=== PATIENT | female | born 1950 | race Caucasian/White ===

== ENCOUNTER 2020-05-21 00:46 | Outpatient (CLI) | payer MEDICARE, BC, SELFPAY ==
[2020-05-21 18:12] LABS: SARS-CoV-2 RNA PCR Negative
== END 2020-05-21 00:47 | disposition home or self-care (01) ==
LOC: ANHCOVIDDT 00:46
PROVIDERS: PCP Emergency Medicine; Visit Provider Internal Medicine Gastroenterology
DX: Z01.812 Encounter for preprocedural laboratory examination (principal); Z20.828 Contact with and (suspected) exposure to other viral communicable diseases
CPT/HCPCS: 87635; C9803; U0003

== ENCOUNTER 2020-05-23 02:50 | Day surgery (SDC) | payer MEDICARE, BC, SELFPAY ==
[2020-05-16 14:01] VITALS: BMI 27.3
[2020-05-16 14:31] VITALS: BMI 27.3
--- NOTE | 2020-05-23 08:23 | WPDANESEPPF ---
Anes - Initial Pre Proc Eval Procedure: Operation Date: 05/23/20 11:30 Proposed Procedures p Screening Colonoscopy - Glenroy Nolen DO Date/Time: 05/23/20 08:23 Surgeon: Glenroy Nolen DO Pre Op Diagnosis: hx of colon polyps Patient Data Age: 70 Gender: F Height: 1.57 m Weight: 68 kg Allergies Allergy/AdvReac Type Severity Reaction Status Date / Time cephalexin Allergy Unknown Hives Verified 05/23/20 10:28 Home Medications Medication Instructions Recorded Confirmed Type aspirin 81 mg tablet,delayed 81 mg PO DAILY 08/11/19 05/23/20 History release nitroglycerin 0.4 mg sublingual 0.4 mg SUBLINGUAL Q5M PRN 08/11/19 05/16/20 History tablet metoprolol tartrate 25 mg tablet See Rx Instructions .ROUTE 03/27/20 05/23/20 Rx .COMPLEX #90 tablet atorvastatin 40 mg tablet 40 mg PO DAILY #90 tablet 04/03/20 05/23/20 Rx cholecalciferol (vitamin D3) 50 50 mcg PO WEEKLY cap 04/03/20 05/23/20 History mcg (2,000 unit) capsule Patient hx anesthesia problems: none Family hx anesthesia problems: none PMFSH Past Medical History Medical History (Updated 05/22/20 @ 11:58 by Rufino Cedillo DO) ASHD (arteriosclerotic heart disease) CAD (coronary artery disease) Hypertension Surgical History Surgical History (Updated 05/23/20 @ 11:21 by Rufino Cedillo DO) History of cholecystectomy History of coronary artery stent placement stent x1, 08/2018 Social History Social History Smoking status: Former smoker Alcohol intake: current Alcohol use details: SOCIAL, WEEKENDS Living arrangements: with family Additional living arrangements comments: with son Gender identity (if verbalized by the patient): Female Spiritual care concerns: No Anes - Eval Final PreProcedure Day of Procedure 05/23/20 08:23 Patient weight: overweight Heart: regular rate and rhythm Lungs: clear to auscultation and normal air movement Airway: Mallampati scale class II Neurological: alert and oriented Last oral intake: >/= 8 hours ASA classification: III Emergent: no Anesthetic plan: proceed Anesthesia type and monitoring: general GIVS and standard monitoring Informed Consent: The patient's anesthetic plan and its attendant risks and benefits were discussed with the patient/family/POA. Questions were solicited and answers provided to the satisfaction of the patient/family/POA.
[2020-05-23 10:29] VITALS: BP 137/84; PULSE 75; RESP 16; TEMP 36.4; O2SAT 100; BMI 26.5
[2020-05-23] MEDS: LACTATED RINGERS 1,000 ML 150 ML IV CONT (10:44)
--- NOTE | 2020-05-23 12:20 | PM.IMHP ---
H&P: HPI History of Present Illness Date/Time: 05/23/20 12:20 Chief complaint: hx of colon polyps Narrative: Reason for visit colonoscopy. This very pleasant lady seen in consultation request of the primary physician. Impression: Area very pleasant lady that is here for screening and surveillance colonoscopy. She has a history of adenomatous colon polyps. HTN. HLD. Coronary disease. Vitamin-D deficiency. Recommendation: Colonoscopy. History: This very pleasant lady's here for screening and surveillance colonoscopy. She has history adenomatous colon polyps. Physical examination: General: very pleasant patient in no acute distress. HEENT: Head was normocephalic sclerae is clear mouth without masses neck was supple. Heart: Rate rhythm regular without S3 or S4. Lungs: CTA. Abdomen: Soft with no guarding or rigidity. Bowel sounds were active. Neurologic: Cranial nerves 2 through 12 intact. No focal defects. No clonus. Musculoskeletal system: Revealed no joint tenderness or swelling no muscle atrophy. Extremities: Reveal no significant edema. Skin: Warm and dry with normal turgor. Mental status: intact. Patient is alert and oriented. Review of Systems Review of Systems: All systems reviewed & are unremarkable except as noted in HPI and below PMFSH Past Medical History Medical History (Updated 05/22/20 @ 11:58 by Rufino Cedillo DO) ASHD (arteriosclerotic heart disease) CAD (coronary artery disease) Hypertension Surgical History Surgical History (Updated 05/23/20 @ 11:21 by Rufino Cedillo DO) History of cholecystectomy History of coronary artery stent placement stent x1, 08/2018 Social History Social History Smoking status: Former smoker Alcohol intake: current Alcohol use details: SOCIAL, WEEKENDS Living arrangements: with family Additional living arrangements comments: with son Gender identity (if verbalized by the patient): Female Spiritual care concerns: No Meds Home Medications and Allergies Home Medications Medication Instructions Recorded Confirmed Type aspirin 81 mg tablet,delayed 81 mg PO DAILY 08/11/19 05/23/20 History release nitroglycerin 0.4 mg sublingual 0.4 mg SUBLINGUAL Q5M PRN 08/11/19 05/16/20 History tablet metoprolol tartrate 25 mg tablet See Rx Instructions .ROUTE 03/27/20 05/23/20 Rx .COMPLEX #90 tablet atorvastatin 40 mg tablet 40 mg PO DAILY #90 tablet 04/03/20 05/23/20 Rx cholecalciferol (vitamin D3) 50 50 mcg PO WEEKLY cap 04/03/20 05/23/20 History mcg (2,000 unit) capsule Allergies Allergy/AdvReac Type Severity Reaction Status Date / Time cephalexin Allergy Unknown Hives Verified 05/23/20 10:28 Vital Signs Vital Signs - 24 hr 05/23/20 10:29 Temperature 36.4 C Pulse Rate 75 Respiratory Rate 16 Blood Pressure 137/84 Pulse Oximetry 100
[2020-05-23 12:44] VITALS: BP 127/72; PULSE 67; RESP 17; O2SAT 100
[2020-05-23 12:54] VITALS: BP 132/76; PULSE 64; RESP 17; O2SAT 97
[2020-05-23 13:04] VITALS: BP 147/76; PULSE 60; RESP 17; O2SAT 100
== END 2020-05-23 13:20 | disposition home or self-care (01) ==
PROVIDERS: PCP Emergency Medicine; Referring Provider Obstetrics & Gynecology Gynecology; Visit Provider Internal Medicine Gastroenterology
PROC: 0DJD8ZZ Inspection of Lower Intestinal Tract, Via Natural or Artificial Opening Endoscopic (ICD-10-PCS; CPT 45378; principal; 2020-05-23 11:30)
DX: Z12.11 Encounter for screening for malignant neoplasm of colon (principal); K63.5 Polyp of colon; K57.30 Diverticulosis of large intestine without perforation or abscess without bleeding; K64.8 Other hemorrhoids; I10 Essential (primary) hypertension; I25.10 Atherosclerotic heart disease of native coronary artery without angina pectoris; Z79.82 Long term (current) use of aspirin; Z95.5 Presence of coronary angioplasty implant and graft; Z87.891 Personal history of nicotine dependence
CPT/HCPCS: 45380; 88305; J2704; J7120

== ENCOUNTER → 2020-08-24 12:19 | Outpatient (CLI) | payer MEDICARE, SELFPAY ==
--- NOTE | ~2020-08-24 | MM_ITS ---
EXAMINATION: MM screening [facility] BI w marylou HISTORY: Screening mammogram TECHNIQUE: Craniocaudal and mediolateral oblique 3-D tomosynthesis images were obtained and synthetic 2-D images were generated. CAD analysis was submitted and interpreted. COMPARISON: 07/20/2019, 04/05/1718, 03/17/2017 BREAST PARENCHYMAL COMPOSITION: There are scattered areas of fibroglandular density. FINDINGS: RIGHT BREAST: There is no evidence of suspicious mass, calcification, or architectural distortion to suggest malignancy. There has been no significant interval change. LEFT BREAST: An asymmetry is present in the middle third of the inner left breast 7 cm from the nippl e on the craniocaudal view. IMPRESSION: 1. Left breast asymmetry on the craniocaudal view. 2. Additional mammographic views and possible breast ultrasound are recommended. BI-RADS Category 0: Incomplete: Needs additional imaging evaluation. Reviewed, dictated and finalized at location A. LITY ENVIRONMENTAL TECHNICIAN IMPRESSION: 1. Left breast asymmetry on the craniocaudal view. 2. Additional mammographic views and possible breast ultrasound are recommended . BI-RADS Category 0: Incomplete: Needs additional imaging evaluation.
== END ==
PROVIDERS: Visit Provider Obstetrics & Gynecology Gynecology
DX: Z12.31 Encounter for screening mammogram for malignant neoplasm of breast (principal); R92.8 Other abnormal and inconclusive findings on diagnostic imaging of breast
CPT/HCPCS: 77063; 77067

== ENCOUNTER → 2020-09-17 09:03 | Outpatient (CLI) | payer MEDICARE, SELFPAY ==
--- NOTE | ~2020-09-17 | MMUS_ITS ---
EXAMINATION: MM diagnostic mammo unilat LT, US breast LT limited HISTORY: Left breast asymmetry on screening mammogram TECHNIQUE: Additional 3-D tomosynthesis images of the left breast were performed and synthetic 2-D im ages were generated. CAD analysis was submitted and interpreted. High resolution limited left breast ultrasound was performed. COMPARISON: 08/24/2020, 07/20/2019, 04/12/2018 FINDINGS: MAMMOGRAPHIC FINDINGS: There appears to be a 3 mm mass with surrounding architectural distortion in the middle third of the lower breast at the 7:00 location 6 cm from the nipple. ULTRASOUND: There is a 2.5 mm oval, circumscribed, hypoechoic mass without definite posterior features or interna l vascularity at the 7:00 location 3 cm from the nipple. IMPRESSION: 1. Suspicious left breast mass. 2. Ultrasound-guided biopsy is recommended. BI-RADS category 4, suspicious findings. Reviewed, dictated and finalized at location A. ACT ASSEMBLER IMPRESSION: 1. Suspicious left breast mass. 2. Ultrasound-guided biopsy is recommended. BI-RADS category 4, suspicious findings.
== END ==
PROVIDERS: Visit Provider Obstetrics & Gynecology Gynecology
DX: N63.24 Unspecified lump in the left breast, lower inner quadrant (principal)
CPT/HCPCS: 76642; 77065

== ENCOUNTER → 2022-04-07 09:48 | Outpatient (CLI) | payer MEDICARE, SELFPAY ==
--- NOTE | ~2022-04-07 | MM_ITS ---
EXAMINATION: MM screening [facility] BI w marylou HISTORY: Screening TECHNIQUE: Craniocaudal and mediolateral oblique 3-D tomosynthesis images were obtained and synthetic 2-D images were generated. CAD analysis was submitted and interpreted. COMPARISON: Comparison to multiple prior studies sequentially, with oldest reviewed study dated 12/30. BREAST PARENCHYMAL COMPOSITION: There are scattered areas of fibroglandular density. FINDINGS: There is no evidence of suspicious mass, calcification, or architectural distortion to sugg est malignancy in either breast. There has been no suspicious interval change. IMPRESSION: 1. No mammographic evidence of malignancy. 2. Recommend routine screening mammography in one year. BI-RADS Category 1: Negative Reviewed, dictated and finalized at location A.
== END ==
PROVIDERS: PCP Emergency Medicine; Visit Provider Obstetrics & Gynecology Gynecology
DX: Z12.31 Encounter for screening mammogram for malignant neoplasm of breast (principal)
CPT/HCPCS: 77063; 77067

== ENCOUNTER 2022-05-19 10:20 | Outpatient (CLI) | payer MEDICARE, BC, SELFPAY ==
--- NOTE | ~2022-05-19 | US_ITS ---
EXAMINATION: US carotid duplex BI DATE: 05/19/2022 11:17 INDICATION: Left carotid bruit TECHNIQUE: Grayscale, color Doppler, and pulsed Doppler images of the cervical carotid arteries were obtained. The degree of vessel stenosis is placed in one of the following categories: normal, <50%, 5 0-69%, >=70% but less than near-occlusion, near-occlusion, or total occlusion. Note that percent sten osis relative to normal distal artery lumen diameter is indirectly measured from velocity measurement s as described by Edwar, et al. Radiology 2003; 229:340-346. Notes: Normal: Peak systolic velocity <125 centimeters/sec and no plaque <50%. Peak systolic velocity <125 ( EDV <40; ICA/CCA PSV ratio <2.0; used these factors only a tandem lesions or low cardiac output or co ntralateral disease) 50-69 %: PSV 125-230 (EDV 40-100; ratio 2-4) >= 70% but less than near occlusion: PSV greater than 230 (EDV > 100; ratio> 4.0) Near Occlusion: PSV that is variable; markedly narrowed lumen Occlusion: Absent flow on color/spectral Doppler and no lumen on arenas scale. COMPARISON: None. FINDINGS: RIGHT: The right common carotid artery (CCA) peak systolic velocity (PSV) is 106 cm/s. The right internal ca rotid artery (ICA) PSV is 74 cm/s. The right ICA end-diastolic velocity (EDV) is 17 cm/s. The right I CA/CCA PSV ratio is 1.5. The external carotid artery (ECA) PSV is 140 cm/s. There is antegrade flow i n the right vertebral artery. LEFT: The left CCA PSV is 81 cm/s. The left ICA PSV is 87 cm/s. The left ICA EDV is 24 cm/s. The left ICA/C CA PSV ratio is 1.3. The ECA PSV is 93 cm/s. There is antegrade flow in the left vertebral artery. IMPRESSION: 1. Less than 50% stenosis in the right internal carotid artery by sonographic criteria. 2. Less than 50% stenosis in the left internal carotid artery by sonographic criteria. Reviewed, dictated and finalized at location A. IMPRESSION: 1. Less than 50% stenosis in the right internal carotid artery by sonographic c khang. 2. Less than 50% stenosis in the left internal carotid artery by sonographic maritza diaz.
== END 2022-05-19 10:21 | disposition home or self-care (01) ==
LOC: ANHIMG 10:24
PROVIDERS: PCP Emergency Medicine; Visit Provider Specialist
DX: R09.89 Other specified symptoms and signs involving the circulatory and respiratory systems (principal); I65.23 Occlusion and stenosis of bilateral carotid arteries
CPT/HCPCS: 93880

== ENCOUNTER 2023-09-20 04:17 | Inpatient (IN) | payer MEDICARE, BC, SELFPAY ==
[2023-09-20] VITALS (19 sets, daily range): BP systolic 120–179; BP diastolic 59–82; PULSE 64–95; RESP 12–21; TEMP 36.6–37.1; O2SAT 98–100; BMI 26.7
--- NOTE | ~2023-09-20 | CT_ITS ---
EXAMINATION: CT brain wo con INDICATION: Head injury COMPARISON: None TECHNIQUE: Standard unenhanced head CT. The dose-length product (DLP) was 605.33 mGy-cm. The mA was a djusted according to patient size. Iterative reconstruction technique was employed. FINDINGS: No acute intraparenchymal hemorrhage. No evidence of mass lesion. No evidence of acute infa rction. There is mild periventricular and subcortical hypodensity probably related to small vessel is chemic disease. There is mild prominence of the sulci and ventricles related to cerebral atrophy. Int racranial calcified cerebral atherosclerosis is noted. No extra-axial collections. No mass effect or midline shift. The orbits and soft tissues are unremarkable. The visualized sinuses and mastoid air c ells are well aerated. IMPRESSION: 1. No acute intracranial abnormality. 2. Age related findings. Reviewed, dictated and finalized at location F. ST
--- NOTE | 2023-09-20 04:19 | ECG_ITS ---
Measurements Intervals [place] Rate: 68 P: 48 OH: 173 QRS: 55 QRSD: 91 T: 68 QT: 408 QTc: 436 Interpretive Statements SINUS RHYTHM Electronically Signed On 09-20-2023 11:39:45 PARQUETRY FLOOR LAYER by Eddie Rasmussen M.D.
[2023-09-20 04:56] LABS: Basophils Percent Auto 0.7 % (0.2-1.2); Eosinophils Absolute Auto 0.1 K/mm3 (0-0.3); Hematocrit 34.9 % (37.0-47.0); Immature Granulocyte Absolute 0.02 K/mm3 (0.00-0.031); Immature Granulocyte Percent A 0.3 % (0-0.5); Lymphocytes Absolute Auto 0.61 K/mm3 (0.9-3.2); Lymphocytes Percent Auto 10.4 % (18.3-44.2); Mean Corpuscular HGB Conc 34.4 g/dl (32-36); Mean Corpuscular Hemoglobin 31.7 pg (26-34); Mean Corpuscular Volume 92.1 fl (80-100); Monocytes Absolute Auto 0.4 K/mm3 (0.1-0.6); Monocytes Percent Auto 6.8 % (2.6-8.5); Neutrophils Absolute Auto 4.7 K/mm3 (1.3-6.7); Neutrophils Percent Auto 80.8 % (45.5-73.1); Platelet Count Result 265 k/mm3 (150-375); Red Blood Count 3.79 M/mm3 (4.2-5.4); White Blood Count 5.9 K/mm3 (4.5-10.0)
[2023-09-20 07:07] LABS: Alanine Aminotransferase 24 U/L (6-35); Alkaline Phosphatase 85 U/L (38-126); Anion Gap 5 mmol/L (8-16); Aspartate Amino Transferase 35 U/L (14-36); Bilirubin,Total 1.5 mg/dL (0.2-1.3); Blood Urea Nitrogen 14 mg/dL (7-17); Calcium 9.4 mg/dL (8.4-10.2); Carbon Dioxide 31 mmol/L (22-30); Chloride 89 mmol/L (98-107); Estimated Glomerular Filt Rate > 60; Glucose 112 mg/dL (65-110); Potassium 3.3 mmol/L (3.4-5.0); Sodium 125 mmol/L (137-145)
--- NOTE | 2023-09-20 07:44 | ED.DIZZY ---
HPI - Dizziness General Chief Complaint: Syncope Stated Complaint: syncopal episode/hit head Time Seen by Provider: 09/20/23 06:52 History of Present Illness HPI Narrative: 73-year-old presenting to the emergency department for evaluation after having a syncopal episode. Patient reports she had woken up in the night to use the restroom, patient was able to successfully use the restroom and while walking back to her bedroom she felt she was going to pass out. patient was not able to keep herself from falling. patient did have a syncopal episode during which she struck her forehead. Patient denies any other pain or injury. Patient does have prior history of VA and does have a stent in place, patient follows up with Dr. Johnson. Patient did have a similar syncopal episode the holidays, at that time patient attributed her symptoms to gastroenteritis. Related Data Home Medications Medication Instructions Recorded Confirmed aspirin 81 mg tablet,delayed 81 mg PO DAILY 08/11/19 09/20/23 release chlorthalidone 25 mg tablet 25 mg PO DAILY 11/17/22 09/20/23 metoprolol succinate 50 mg 50 mg PO DAILY 11/17/22 09/20/23 tablet,extended release 24 hr ergocalciferol (vitamin D2) 1,250 50,000 unit PO USEASDIRECTD 07/15/23 09/20/23 mcg (50,000 unit) capsule atorvastatin 40 mg tablet 40 mg PO DAILY 09/20/23 09/20/23 Allergies Allergy/AdvReac Type Severity Reaction Status Date / Time cephalexin Allergy Unknown Hives Verified 09/20/23 08:37 Acyclovir Analogues AdvReac Mild Nausea and Verified 09/20/23 08:37 hives Review of Systems Review of Systems: All systems reviewed & are unremarkable except as noted in HPI and below [facility] Past Medical History Medical History (Updated 09/20/23 @ 13:30 by Abbe Pedroza MD) ASHD (arteriosclerotic heart disease) CAD (coronary artery disease) Closed fracture of right wrist Colon cancer screening Encounter for screening for cardiovascular disorders Essential hypertension Hypertension Mixed hyperlipidemia Other screening mammogram Subdural hemorrhage 2020 after fall with head trauma Surgical History Surgical History History of cholecystectomy History of coronary artery stent placement stent x1, 08/2018 Family History Family History Mother Family history of coronary artery disease Family history of lung cancer, Onset Age: 83 Social History Social History Smoking status: Former smoker Alcohol intake: current Drinks per week: 2 Alcohol use details: SOCIAL, WEEKENDS Substance use type: does not use Do You Feel Safe in your Home?: Yes Lack of Transportation: No Lack of Food: Never True Current Housing: Decline to Answer Concerned About Future Housing: Decline to Answer Difficulty Paying Gas/Electric Bills: Decline to Answer Difficulty Paying for Meds: Decline to Answer Currently Unemployed: Decline to Answer Education: Decline to Answer Difficulty w/ Childcare or Family Care: Decline to Answer Living arrangements: with family Additional living arrangements comments: with son Gender identity (if verbalized by the patient): Female Spiritual care concerns: No Exam Narrative: APPEARANCE: Well appearing, no pain, no distress, well-nourished. HEAD: normocephalic, abrasions to face. EYES: PERRLA/EOMI, conjunctivae clear. NOSE: Normal no drainage EARS:TMS clear with good light reflex. THROAT: Pharynx clear, no exudate. NECK: Supple. No adenopathy, no masses. RESPIRATORY: Airway patent, respirations nonlabored. Clear to auscultation bilaterally, no rales, rhonchi, wheezing. CARDIOVASCULAR: Regular rate and rhythm without murmurs rubs or gallops. ABDOMINAL: Soft, nontender, nondistended, normal bowel sounds MUSCULOSKELETAL: Moves all extremities. Strength/ROM intact, No edema,
[2023-09-20 07:45] LABS: Influenza A QL RT-PCR Negative (Negative); Influenza B QL RT-PCR Negative (Negative); RSV RNA, RT-PCR Negative (Negative); SARS-CoV-2 RNA PCR Negative (Negative)
[2023-09-20] MEDS: SODIUM CHLORIDE 0.9% IV 1,000 ML 999 ML IV CONT (10:05)
[2023-09-20] MEDS: POTASSIUM CHLORIDE 20 MEQ PACKET (FOR LIQUID) 40 MEQ PO (10:05)
[2023-09-20 10:13] LABS: Magnesium 1.9 mg/dL (1.6-2.3)
--- NOTE | 2023-09-20 11:20 | PC.NURSE ---
This patient, Reina Garcia, was admitted to [facility] Surg Room 330-02. Patient/family oriented to hospital policies and general routines including ID bracelet, bed and alarms, visiting hours, pain management, procedures, bathroom and other care routines, personal items, smoking policy, room service/diet, and visiting hours. Information on how to activate the Rapid Response Team has been discussed. Patient/Family are encouraged to report perceived risks to care and to ask questions if they do not understand what they are told or what they should do.
--- NOTE | 2023-09-20 11:40 | PM.IMHP ---
H&P: HPI History of Present Illness Date/Time: 09/20/23 11:40 Chief Complaint: Syncope Narrative: 73-year-old female was feeling good until around 3:00 a.m. this morning. She had not eaten much the night before and was not sleeping well. She was sleeping on the couch and awaken to urinate bathroom and urinated she was walking back began to feel lightheaded. She tried to make it back to the couch but lost consciousness and fell and hit her head. But she awakened fairly quickly. Her son, who lives with her, found her. She did not have any chest pain or palpitations. No headaches. No focal weakness or numbness. No difficulty ambulating afterwards. She denied any similar episodes. However around August 10 for 1 days she felt lightheaded and tired. She has a history of difficult to control and labile blood pressure. Home blood pressure readings generally run in the 140s to 150s sometimes higher when she is stressed or active. She denied chest pain or dyspnea or edema. Denied abdominal pain. Denied rectal bleeding. Denied difficulty urinating or dysuria. Denied hematuria. Denied migraines. Denied weakness or numbness. Denied fevers or chills, cough or congestion or recent illness. Review of Systems Review of Systems: All systems reviewed & are unremarkable except as noted in HPI and below PMFSH Past Medical History Medical History (Updated 09/20/23 @ 13:30 by Abbe Pedroza MD) ASHD (arteriosclerotic heart disease) CAD (coronary artery disease) Closed fracture of right wrist Colon cancer screening Encounter for screening for cardiovascular disorders Essential hypertension Hypertension Mixed hyperlipidemia Other screening mammogram Subdural hemorrhage 2020 after fall with head trauma Surgical History Surgical History History of cholecystectomy History of coronary artery stent placement stent x1, 08/2018 Family History Family History Mother Family history of coronary artery disease Family history of lung cancer, Onset Age: 83 Social History Social History Smoking status: Former smoker Alcohol intake: current Drinks per week: 2 Alcohol use details: SOCIAL, WEEKENDS Substance use type: does not use Do You Feel Safe in your Home?: Yes Lack of Transportation: No Lack of Food: Never True Current Housing: Decline to Answer Concerned About Future Housing: Decline to Answer Difficulty Paying Gas/Electric Bills: Decline to Answer Difficulty Paying for Meds: Decline to Answer Currently Unemployed: Decline to Answer Education: Decline to Answer Difficulty w/ Childcare or Family Care: Decline to Answer Living arrangements: with family Additional living arrangements comments: with son Gender identity (if verbalized by the patient): Female Spiritual care concerns: No Meds Home Medications and Allergies Home Medications Medication Instructions Recorded Confirmed Type aspirin 81 mg tablet,delayed 81 mg PO DAILY 08/11/19 09/20/23 History release nitroglycerin 0.4 mg sublingual 0.4 mg sublingual Q5M PRN Chest 11/30/20 09/20/23 Rx tablet Pain #25 tabs chlorthalidone 25 mg tablet 25 mg PO DAILY 11/17/22 09/20/23 History metoprolol succinate 50 mg 50 mg PO DAILY 11/17/22 09/20/23 History tablet,extended release 24 hr ergocalciferol (vitamin D2) 1,250 50,000 unit PO USEASDIRECTD 07/15/23 09/20/23 History mcg (50,000 unit) capsule atorvastatin 40 mg tablet 40 mg PO DAILY 09/20/23 09/20/23 History Allergies Allergy/AdvReac Type Severity Reaction Status Date / Time cephalexin Allergy Unknown Hives Verified 09/20/23 08:37 Acyclovir Analogues AdvReac Mild Nausea and Verified 09/20/23 08:37 hives Vital Signs Vital Signs - 24 hr 09/20/23 04:41 09/20/23 05:39 09/20/23 05:45 Temp
[2023-09-20] MEDS: METOPROLOL SUCCINATE EXT REL 50 MG TABCR PO (14:19)
[2023-09-20] MEDS: POTASSIUM CHLORIDE 20 MEQ ER TABLET 40 MEQ PO (14:19)
[2023-09-21] VITALS (11 sets, daily range): BP systolic 136–147; BP diastolic 59–71; PULSE 61–80; RESP 14–18; TEMP 36.3–36.9; O2SAT 99–100
[2023-09-21 07:02] LABS: Anion Gap 4 mmol/L (8-16); Blood Urea Nitrogen 12 mg/dL (7-17); Carbon Dioxide 29 mmol/L (22-30); Chloride 95 mmol/L (98-107); Estimated CRCL calculation 62 ml/min; Estimated Glomerular Filt Rate > 60; Glucose 92 mg/dL (65-110); Magnesium 1.8 mg/dL (1.6-2.3); Sodium 128 mmol/L (137-145)
[2023-09-21] MEDS: METOPROLOL SUCCINATE EXT REL 50 MG TABCR PO (08:43)
[2023-09-21] MEDS: ASPIRIN 81 MG ENTERIC TABLET PO (08:44)
[2023-09-21] MEDS: ATORVASTATIN 40 MG TABLET PO (08:44)
--- NOTE | 2023-09-21 13:45 | PM.IMPN ---
Progress Note: A&P Assessment and Plan (1) Syncope: Code(s): R55 - Syncope and collapse Status: Acute Assessment and Plan: Clinically related to volume to with orthostatic hypotension and electrolyte abnormalities secondary to chlorthalidone (2) Orthostatic hypotension: Code(s): I95.1 - Orthostatic hypotension Status: Acute Assessment and Plan: Likely due to poor p.o. intake and use of thiazide diuretic as well as metoprolol (3) Acute hyponatremia: Code(s): E87.1 - Hypo-osmolality and hyponatremia Status: Acute Assessment and Plan: Likely due to thiazide diuretic Replete with IVF and hold thiazide F/u lab (4) Acute hypokalemia: Code(s): E87.6 - Hypokalemia Status: Acute Assessment and Plan: Acute on chronic Likely due to thiazide diuretic Replete with PO KCL F/u lab (5) Coronary artery disease involving [place] coronary artery without angina pectoris: Code(s): I25.10 - Atherosclerotic heart disease of [place] coronary artery without angina pectoris Status: Acute Assessment and Plan: Clinically stable Continue metoprolol (6) Hypertension: Code(s): I10 - Essential (primary) hypertension Status: Acute Assessment and Plan: Control not adequate by current readings, however did not get antihypertensives on the morning of September 20 Give metoprolol ER in afternoon of September 20 Reassessed blood pressures September 21 including orthostatics If hypertension not controlled low-dose amlodipine (7) HLD (hyperlipidemia): Qualifiers: Hyperlipidemia type: mixed hyperlipidemia Qualified Code(s): E78.2 - Mixed hyperlipidemia Code(s): E78.5 - Hyperlipidemia, unspecified Status: Acute Assessment and Plan: Continue atorvastatin Subjective Date/time seen: 09/21/23 13:45 Interval history: 73-year-old female was feeling good until around 3:00 a.m. this morning.? She had not eaten much the night before and was not sleeping well.? She was sleeping on the couch and awaken to urinate bathroom and urinated she was walking back began to feel lightheaded.? She tried to make it back to the couch but lost consciousness and fell and hit her head. Pt found to have low potassium and sodium levels potassium corrected on labs but sodium is still low pt diuretics have been stopped pt looks dry Review of Systems Review of Systems: feels better no specic complaints All systems reviewed & are unremarkable except as noted in HPI and below Exam Narrative: HEENT: EOMI, PERRL, sclerae nonicteric, pharyngeal mucosa pink and intact NECK: No JVD, adenopathy, or thyromegaly CHEST: Clear to auscultation and percussion. Normal effort. HEART: NL S1/S2, regular, no murmur. ABDOMEN: BS+, soft, nontender, no mass, no bruits EXTREMITIES: No cyanosis, edema, or clubbing NEUROLOGIC: CN intact and symmetric to inspection. Strength and tone symmetric in upper and lower extremities. MUSCULOSKELETAL: No gross deformity to visual inspection. PSYCH: Alert. Oriented to person, place, and time. Objective Data Vital Signs Vital Signs: Vital Signs - 24 hr 09/20/23 14:19 09/20/23 14:00 09/20/23 16:03 Temperature 36.6 C Pulse Rate 92 79 65 Respiratory Rate 12 Blood Pressure 142/64 H Pulse Oximetry 100 Oxygen Delivery 09/20/23 21:37 09/20/23 20:45 09/20/23 22:41 Temperature 36.8 C Pulse Rate 69 68 Respiratory Rate Blood Pressure 144/60 H Pulse Oximetry 99 99 Oxygen Delivery Room Air 09/20/23 20:00 09/21/23 00:00 09/21/23 04:00 Temperature Pulse Rate 74 65 61 Respiratory Rate Blood Pressure Pulse Oximetry Oxygen Delivery 09/21/23 06:15 09/21/23 08:43 09/21/23 08:45 Temperature 36.4 C L Pulse Rate 69 80 Respiratory Rate 16 Blood Pressure 145/59 H Pulse Oximetry 100 Oxygen Delivery Room Air Intake/Output Intake/Out
[2023-09-21] MEDS: SODIUM CHLORIDE 0.9% IV 1,000 ML 70 ML IV CONT (14:32)
[2023-09-22] VITALS (11 sets, daily range): BP systolic 153–188; BP diastolic 68–88; PULSE 60–81; RESP 16–18; TEMP 36.3–36.6; O2SAT 100
--- NOTE | 2023-09-22 | ECHO_ITS ---
Patient Info Name: Reina Garcia Age: 73 years : 1950 Gender: Female Ht: 62 in Wt: 150 lbs BSA: 1.74 m2 HR: 74 bpm BP: 153 / 75 mmHg Heart Rhythm: Sinus Rhythm Technical Quality: Good Exam Date: 09/22/2023 2:00 PM Exam Location: Echo Lab Patient Status: Inpatient Admit Date: 09/21/2023 Staff Ordering Physician: Trinidad Pratt MD Geodetic Computator: Dieter Snowden RDCS Attending Provider: Abbe Pedroza MD Exam Type: CA echo doppler color flow Study Info Indications - syncope Complete two-dimensional, color flow and Doppler transthoracic echocardiogram is performed. Summary 1. Complete two-dimensional, color flow and Doppler transthoracic echocardiogram is performed. 2. Left ventricular chamber dimension is normal. 3. Left ventricular systolic function is normal, estimated at >70%. 4. The left ventricular diastolic function is grade I diastolic dysfunction. 5. Right ventricular systolic function is normal. 6. No significant valvular disease. Left Ventricle Left ventricular chamber dimension is normal. Left ventricular systolic function is normal, estimated at >70%. There is no increased left ventricular wall thickness. The left ventricular diastolic function is grade I diastolic dysfunction. Right Ventricle Right ventricular chamber dimension is normal. Right ventricular systolic function is normal. Left Atria Left atrial chamber dimension is normal. Right Atria Right atrial chamber dimension is normal. Atrial Septum Intact interatrial septum visualized by color flow imaging. Aortic Valve The aortic valve is trileaflet. There is no aortic valve stenosis. There is no aortic valve regurgitation. There is mild aortic valve calcification. Pulmonic Valve The pulmonic valve is not well visualized. Mitral Valve There is trace mitral valve regurgitation. The mitral valve annulus is moderately calcified. Tricuspid Valve There is trace tricuspid valve regurgitation. Pericardium/Pleural There is trivial pericardial effusion. Inferior Vena Cava Normal inferior vena cava with >50% collapse upon inspiration consistent with Empty right atrial pressure, 3 mmHg. Aorta The aortic root size at the sinus of Valsalva is normal. Left Ventricular Outflow Tract Name Value Normal LVOT 2D LVOT Diameter 1.9 cm LVOT Doppler LVOT Peak Gradient 5 mmHg LVOT Mean Gradient 3 mmHg LVOT VTI 26 cm LVOT VTI/AV VTI Ratio 0.7 LVOT Stroke Volume 72 ml LVOT CO 4.9 l/min LVOT CI 2.8 l/min/m2 Pulmonic Valve Name Value Normal RVOT Doppler RVOT Peak Gradient 2 mmHg PV Doppler PV Peak Gradient 3 mmHg Mitral Valve --------
[2023-09-22] MEDS: SODIUM CHLORIDE 0.9% IV 1,000 ML 70 ML IV CONT ×2 (04:50→21:12)
[2023-09-22 06:44] LABS: Anion Gap 5 mmol/L (8-16); Blood Urea Nitrogen 12 mg/dL (7-17); Carbon Dioxide 26 mmol/L (22-30); Chloride 95 mmol/L (98-107); Estimated CRCL calculation 64 ml/min; Estimated Glomerular Filt Rate > 60; Glucose 89 mg/dL (65-110); Potassium 3.5 mmol/L (3.4-5.0); Sodium 126 mmol/L (137-145)
[2023-09-22] MEDS: ASPIRIN 81 MG ENTERIC TABLET PO (08:49)
[2023-09-22] MEDS: METOPROLOL SUCCINATE EXT REL 50 MG TABCR PO (08:49)
[2023-09-22] MEDS: ATORVASTATIN 40 MG TABLET PO (08:49)
[2023-09-22 11:36] LABS: Sodium Urine Random 81 meq/L
--- NOTE | 2023-09-22 15:08 | P.PNIM_ITS ---
Progress Note: A&P Assessment and Plan (1) Syncope: Code(s): R55 - Syncope and collapse Status: Acute Assessment and Plan: * Clinically related to volume to with orthostatic hypotension and electrolyte abnormalities secondary to chlorthalidone * orthostatic negative today (2) Orthostatic hypotension: Code(s): I95.1 - Orthostatic hypotension Status: Acute Assessment and Plan: * Likely due to poor p.o. intake and use of thiazide diuretic as well as metoprolol * ortho vital signs normal today * dietitian consulted for intale eval l (3) Acute hyponatremia: Code(s): E87.1 - Hypo-osmolality and hyponatremia Status: Acute Assessment and Plan: * Likely due to thiazide diuretic * Replete with IVF and hold thiazide * awaiting urine studies (4) Acute hypokalemia: Code(s): E87.6 - Hypokalemia Status: Acute Assessment and Plan: * Acute on chronic * Likely due to thiazide diuretic * Replete with PO KCL * F/u lab (5) Coronary artery disease involving [place] coronary artery without angina pectoris: Code(s): I25.10 - Atherosclerotic heart disease of [place] coronary artery without angina pectoris Status: Acute Assessment and Plan: * Clinically stable * Continue metoprolol (6) Hypertension: Code(s): I10 - Essential (primary) hypertension Status: Acute Assessment and Plan: * Control not adequate by current readings, however did not get antihypertensives on the morning of September 20 * Give metoprolol ER in afternoon of September 20 * Reassessed blood pressures September 21 including orthostatics * If hypertension not controlled low-dose amlodipine (7) HLD (hyperlipidemia): Qualifiers: Hyperlipidemia type: mixed hyperlipidemia Qualified Code(s): E78.2 - Mixed hyperlipidemia Code(s): E78.5 - Hyperlipidemia, unspecified Status: Acute Assessment and Plan: * Continue atorvastatin Subjective Date/time seen: 09/22/23 15:08 Interval history: 73-year-old female was feeling good until around 3:00 a.m. this morning.? She had not eaten much the night before and was not sleeping well.? She was sleeping on the couch and awaken to urinate bathroom and urinated she was walking back began to feel lightheaded.? She tried to make it back to the couch but lost consciousness and fell and hit her head. Pt found to have low potassium and sodium levels potassium corrected on labs but sodium is still low pt diuretics have been stopped pt looks dry Review of Systems Review of Systems: feels better no specic complaints na still 126, awaiting urine studies All systems reviewed & are unremarkable except as noted in HPI and below Exam Narrative: HEENT: EOMI, PERRL, sclerae nonicteric, pharyngeal mucosa pink and intact NECK: No JVD, adenopathy, or thyromegaly CHEST: Clear to auscultation and percussion. Normal effort. HEART: NL S1/S2, regular, no murmur. ABDOMEN: BS+, soft, nontender, no mass, no bruits EXTREMITIES: No cyanosis, edema, or clubbing NEUROLOGIC: CN intact and symmetric to inspection. Strength and tone symmetric in upper and lower extremities. MUSCULOSKELETAL: No gross deformity to visual inspection. PSYCH: Alert. Oriented to person, place, and time. Objective Data Vital Signs Vital Signs: Vital Signs - 24 hr 09/21/23 16:01 09/21/23 20:00 09/22/23 00:00 Temp
--- NOTE | 2023-09-22 15:08 | PM.IMPN ---
Progress Note: A&P Assessment and Plan (1) Syncope: Code(s): R55 - Syncope and collapse Status: Acute Assessment and Plan: Clinically related to volume to with orthostatic hypotension and electrolyte abnormalities secondary to chlorthalidone orthostatic negative today (2) Orthostatic hypotension: Code(s): I95.1 - Orthostatic hypotension Status: Acute Assessment and Plan: Likely due to poor p.o. intake and use of thiazide diuretic as well as metoprolol ortho vital signs normal today dietitian consulted for intale eval l (3) Acute hyponatremia: Code(s): E87.1 - Hypo-osmolality and hyponatremia Status: Acute Assessment and Plan: Likely due to thiazide diuretic Replete with IVF and hold thiazide awaiting urine studies (4) Acute hypokalemia: Code(s): E87.6 - Hypokalemia Status: Acute Assessment and Plan: Acute on chronic Likely due to thiazide diuretic Replete with PO KCL F/u lab (5) Coronary artery disease involving [place] coronary artery without angina pectoris: Code(s): I25.10 - Atherosclerotic heart disease of [place] coronary artery without angina pectoris Status: Acute Assessment and Plan: Clinically stable Continue metoprolol (6) Hypertension: Code(s): I10 - Essential (primary) hypertension Status: Acute Assessment and Plan: Control not adequate by current readings, however did not get antihypertensives on the morning of September 20 Give metoprolol ER in afternoon of September 20 Reassessed blood pressures September 21 including orthostatics If hypertension not controlled low-dose amlodipine (7) HLD (hyperlipidemia): Qualifiers: Hyperlipidemia type: mixed hyperlipidemia Qualified Code(s): E78.2 - Mixed hyperlipidemia Code(s): E78.5 - Hyperlipidemia, unspecified Status: Acute Assessment and Plan: Continue atorvastatin Subjective Date/time seen: 09/22/23 15:08 Interval history: 73-year-old female was feeling good until around 3:00 a.m. this morning.? She had not eaten much the night before and was not sleeping well.? She was sleeping on the couch and awaken to urinate bathroom and urinated she was walking back began to feel lightheaded.? She tried to make it back to the couch but lost consciousness and fell and hit her head. Pt found to have low potassium and sodium levels potassium corrected on labs but sodium is still low pt diuretics have been stopped pt looks dry Review of Systems Review of Systems: feels better no specic complaints na still 126, awaiting urine studies All systems reviewed & are unremarkable except as noted in HPI and below Exam Narrative: HEENT: EOMI, PERRL, sclerae nonicteric, pharyngeal mucosa pink and intact NECK: No JVD, adenopathy, or thyromegaly CHEST: Clear to auscultation and percussion. Normal effort. HEART: NL S1/S2, regular, no murmur. ABDOMEN: BS+, soft, nontender, no mass, no bruits EXTREMITIES: No cyanosis, edema, or clubbing NEUROLOGIC: CN intact and symmetric to inspection. Strength and tone symmetric in upper and lower extremities. MUSCULOSKELETAL: No gross deformity to visual inspection. PSYCH: Alert. Oriented to person, place, and time. Objective Data Vital Signs Vital Signs: Vital Signs - 24 hr 09/21/23 16:01 09/21/23 20:00 09/22/23 00:00 Temperature Pulse Rate 66 74 62 Respiratory Rate Blood Pressure Pulse Oximetry 09/21/23 22:00 09/22/23 06:00 09/22/23 04:00 Temperature 98.4 F 97.9 F Pulse Rate 64 62 60 Respiratory Rate 14 16 Blood Pressure 136/62 153/75 H Pulse Oximetry 99 100 09/22/23 08:49 09/22/23 08:00 09/22/23 11:29 Temperature Pulse Rate 74 Respiratory Rate Blood Pressure 171/88 H 182/88 H Pulse Oximetry 09/22/23 11:29 09/22/23 08:00 09/22/23 12:00 Temperature Pulse Rate 81 71 Respiratory Rate Blood Press
[2023-09-23] VITALS (7 sets, daily range): BP systolic 147–168; BP diastolic 67–75; PULSE 65–99; RESP 20; TEMP 36.2; O2SAT 98–100
[2023-09-23 06:16] LABS: Basophils Absolute Auto 0.1 K/mm3 (0.0-0.1); Basophils Percent Auto 1.7 % (0.2-1.2); Eosinophils Absolute Auto 0.1 K/mm3 (0-0.3); Eosinophils Percent Auto 2.7 % (0-4.4); Hemoglobin 10.8 g/dL (12.0-15.0); Lymphocytes Percent Auto 27.4 % (18.3-44.2); Mean Corpuscular HGB Conc 33.8 g/dl (32-36); Mean Corpuscular Hemoglobin 32.1 pg (26-34); Mean Corpuscular Volume 95.2 fl (80-100); Mean Platelet Volume 9.1 fl (7.4-10.4); Monocytes Absolute Auto 0.4 K/mm3 (0.1-0.6); Monocytes Percent Auto 12.3 % (2.6-8.5); Neutrophils Absolute Auto 1.6 K/mm3 (1.3-6.7); Neutrophils Percent Auto 55.9 % (45.5-73.1); Platelet Count Result 223 k/mm3 (150-375); Red Blood Count 3.36 M/mm3 (4.2-5.4); Red Cell Distribution Width 12.2 % (11.5-14.5); White Blood Count 2.9 K/mm3 (4.5-10.0)
[2023-09-23 06:28] LABS: Alanine Aminotransferase 21 U/L (6-35); Albumin Level 3.2 g/dL (3.5-5.1); Alkaline Phosphatase 66 U/L (38-126); Anion Gap 2 mmol/L (8-16); Aspartate Amino Transferase 23 U/L (14-36); Blood Urea Nitrogen 11 mg/dL (7-17); Calcium 8.8 mg/dL (8.4-10.2); Carbon Dioxide 28 mmol/L (22-30); Chloride 101 mmol/L (98-107); Estimated CRCL calculation 64 ml/min; Estimated Glomerular Filt Rate > 60; Glucose 92 mg/dL (65-110); Potassium 4.1 mmol/L (3.4-5.0); Sodium 131 mmol/L (137-145)
[2023-09-23] MEDS: METOPROLOL SUCCINATE EXT REL 50 MG TABCR PO (08:49)
[2023-09-23] MEDS: ASPIRIN 81 MG ENTERIC TABLET PO (08:49)
[2023-09-23] MEDS: ATORVASTATIN 40 MG TABLET PO (08:49)
[2023-09-23 09:56] LABS: Iron 39 ug/dL (37-170)
[2023-09-23 10:07] LABS: Percent Iron Saturation 14 % (20-50)
--- NOTE | 2023-09-23 13:39 | PM.DS ---
DS: Admitting Diagnosis Discharge Date 09/23/2023 Admitting Diagnosis Syncope DS: Discharge Diagnosis Discharge Diagnosis (1) Orthostatic hypotension: Code(s): I95.1 - Orthostatic hypotension Status: Acute (2) Syncope: Code(s): R55 - Syncope and collapse Status: Acute (3) Acute hyponatremia: Code(s): E87.1 - Hypo-osmolality and hyponatremia Status: Acute DS: Summary Hospital Course Hospital Course: 73-year-old female was feeling good until around 3:00 a.m. this morning.? She had not eaten much the night before and was not sleeping well.? She was sleeping on the couch and awaken to urinate bathroom and urinated she was walking back began to feel lightheaded.? She tried to make it back to the couch but lost consciousness and fell and hit her head.? But she awakened fairly quickly.? Her son, who lives with her, found her.? She did not have any chest pain or palpitations.? No headaches.? No focal weakness or numbness.? No difficulty ambulating afterwards.? She denied any similar episodes.? However around August 10 for 1 days she felt lightheaded and tired. She has a history of difficult to control and labile blood pressure.? Home blood pressure readings generally run in the 140s to 150s sometimes higher when she is stressed or active. patient was noted to have hyponatemia with Na 126, which improved with IVF to 131 Syncope and Hypnatremia are likley from volume depletion with Chlorthalidone Chlorthalidone was stopped and orthostatic vital signs normal ECHO showed EF more than 70% hb 10.9 and Isat 12 hypokalemia resolved Patient discharged on 5 days of Sodium tablets, event monitor with referral to cardiology Discharged on Po ferrous sulfate continue PCP in 3-5 days, and referral to cardiology in 1-2 weeks. Time Spent with Patient Time attestation: Total time spent providing and/or coordinating discharge services: DS: Data Data Completed and Pending Labs on day of discharge: Labs from last 24 hours 09/23/23 09/23/23 05:55 05:52 WBC 2.9 L RBC 3.36 L Hgb 10.8 L Hct 32.0 L MCV 95.2 MCH 32.1 MCHC 33.8 RDW 12.2 Plt Count 223 MPV 9.1 Immature Gran % (Auto) 0.0 Neut % (Auto) 55.9 Lymph % (Auto) 27.4 [place] % (Auto) 12.3 H Eos % (Auto) 2.7 Baso % (Auto) 1.7 H Lymph # (Auto) 0.80 L [place] # (Auto) 0.4 Eos # (Auto) 0.1 Baso # (Auto) 0.1 Abs Immat Gran (auto) 0.00 Absolute Neuts (auto) 1.6 Absolute Nucleated RBC 0.0 Nucleated RBC % 0.0 Sodium 131 L Potassium 4.1 Chloride 101 Carbon Dioxide 28 Anion Gap 2 L BUN 11 Creatinine 0.60 L Estim Creat Clear Calc 64 Estimated GFR > 60 Glucose 92 Calcium 8.8 Iron 39 TIBC 278 % Saturation 14 L Ferritin 92.80 Total Bilirubin 1.0 AST 23 ALT 21 Alkaline Phosphatase 66 Total Protein 6.0 L Albumin 3.2 L Discharge Plan Discharge Attending physician on discharge: Trinidad Pratt Discharging Clinician: Trinidad Pratt Anticipated Discharge Date/Time: 09/23/23 13:33 Patient Disposition: Home, Self-Care Activity: as tolerated Diet: as tolerated Patient Instructions: Antibiotic Form Stand Alone Forms: General Discharge Information Follow-up/Referrals: Sorin Carter MD [Primary Care Provider] - (f/u with PCP in 3-5 days) Coco Joyner MD [Physician] - (f/u in 1-2 weeks for event monitor eval ) Discharge Medications: New sodium chloride 1,000 mg tablet,soluble 1,000 mg PO BID 5 Days Qty: 10 0RF ferrous sulfate 325 mg (65 mg iron) tablet,delayed release (DR/EC) 325 mg PO DAILY Qty: 30 1RF Continued aspirin 81 mg tablet,delayed release (DR/EC) 81 mg PO DAILY ergocalciferol (vitamin D2) 1,250 mcg (50,000 unit) capsule 50,000 unit PO USEASDIRECTD Rx Instructions: Takes on every other week nitroglycerin 0.4 mg tablet, sublingual 0.4 mg SUBLINGUAL Q
[2023-09-24 15:57] LABS: Osmolality, Urine 338 mOsm/kg (50-1200)
== END 2023-09-23 14:46 | disposition home or self-care (01) | DRG 641 ==
LOC: ANHED 11:11 → ANH3MEDSUR 11:14
PROVIDERS: Emergency Medicine; Family Medicine; Admitting Provider Internal Medicine; Emergency Provider Emergency Medicine; PCP Emergency Medicine; Visit Provider Internal Medicine
DX: E86.1 Hypovolemia (principal); I95.1 Orthostatic hypotension; E87.1 Hypo-osmolality and hyponatremia; E87.6 Hypokalemia; T50.2X5A Adverse effect of carbonic-anhydrase inhibitors, benzothiadiazides and other diuretics, initial encounter; I10 Essential (primary) hypertension; I25.10 Atherosclerotic heart disease of native coronary artery without angina pectoris; E78.2 Mixed hyperlipidemia; Z20.822 Contact with and (suspected) exposure to COVID-19; Z95.5 Presence of coronary angioplasty implant and graft; I25.2 Old myocardial infarction; Z79.82 Long term (current) use of aspirin; Z87.891 Personal history of nicotine dependence
CPT/HCPCS: 36415; 70450; 80048; 80053; 82728; 83540; 83550; 83735; 83935; 84300; 84443; 85025; 87637; 93005; 93306; 96360; 99285; A9270; G0378; J7030

== ENCOUNTER 2024-04-13 10:03 | Outpatient (CLI) | payer MEDICARE, BC, SELFPAY ==
--- NOTE | ~2024-04-13 | MM_ITS ---
EXAMINATION: MM screening brock BI w marylou HISTORY: Screening TECHNIQUE: Craniocaudal and mediolateral oblique 3-D tomosynthesis images were obtained and synthetic 2-D images were generated. CAD analysis was submitted and interpreted. COMPARISON: Comparison to multiple prior studies sequentially, with oldest reviewed study dated 08/2016. BREAST PARENCHYMAL COMPOSITION: There are scattered areas of fibroglandular density. FINDINGS: There is no evidence of suspicious mass, calcification, or architectural distortion to sugg est malignancy in either breast. There has been no suspicious interval change. IMPRESSION: 1. No mammographic evidence of malignancy. 2. Recommend routine screening mammography in one year. BI-RADS Category 1: Negative Reviewed, dictated and finalized at location B.
== END 2024-04-13 10:04 ==
PROVIDERS: PCP Obstetrics & Gynecology Gynecology; Visit Provider Nurse Practitioner
DX: Z12.31 Encounter for screening mammogram for malignant neoplasm of breast (principal)
CPT/HCPCS: 77063; 77067